=== PATIENT | female | born 1950 | race African-American/Black ===

== ENCOUNTER 2023-06-08 12:07 | Emergency (ER) | payer BC ==
[~2023-06-08] VITALS: Ht 175.3 cm; Wt 64.0 kg
[2023-06-08 12:22] VITALS: BP 175/79; PULSE 91; TEMP 97.9; O2SAT 98
[2023-06-08] MEDS ORDERED: DICL100G31 TP (13:24)
== END 2023-06-08 15:50 | disposition home or self-care (01) ==
LOC: ER 13:03
DX: M25.531 Pain in right wrist (principal); Z88.5 Allergy status to narcotic agent
CPT/HCPCS: 73110; 99283

== ENCOUNTER 2025-02-05 18:30 | Emergency (ER) | payer MEDICARE, MEDICAID ==
[~2025-02-05] VITALS: Ht 160 cm; Wt 60.0 kg
[~2025-02-05 18:30] MED LIST: DICL100G58 TP
[2025-02-05 18:31] VITALS: TEMP 36.7; O2SAT 99
[2025-02-05] MEDS: SODIUM CHLORIDE 0.9% 1,000 ML IV ONE (19:16)
[2025-02-05 19:26] LABS: CALCIUM 9.7 mg/dL (8.7-10.4); CARBON DIOXIDE 29 mEq/L (21-32); CHLORIDE 105 mEq/L (98-107); POTASSIUM 4.3 mEq/L (3.5-5.1); SODIUM 140 mEq/L (136-145)
[2025-02-05 19:31] LABS: CREATININE 0.9 mg/dL (0.6-1.0); GLUCOSE 137 mg/dL (70-105); UREA NITROGEN BLOOD 17 mg/dL (9-23)
[2025-02-05 19:33] LABS: ALANINE AMINOTRANSFERASE < 7 IU/L (10-49); ALBUMIN 4.2 g/dL (3.2-4.8); ASPARTATE AMINOTRANSFERASE 10 IU/L (<34); BILIRUBIN DIRECT 0.2 mg/dL (<=3.0); BILIRUBIN TOTAL 0.7 mg/dL (0.1-1.0)
[2025-02-05 19:36] LABS: TROPONIN I HIGH SENSITIVITY < 4 ng/L (3.0-34)
[2025-02-05 20:34] LABS: BASOPHILS % 0.5 % (0.0-2.0); EOSINOPHILS % 1.3 % (0.0-5.0); HEMATOCRIT. 38.5 % (36.0-48.0); HEMOGLOBIN. 12.9 g/dL (12.0-16.0); LYMPHOCYTES % 8.6 % (20.0-50.0); MEAN CORPUSCULAR HEMOGLOBIN 30.5 pg (28.0-32.0); MEAN CORPUSCULAR HGB CONC 33.5 g/dL (31.0-37.0); MEAN PLATELET VOLUME 9.3 fl (7.4-10.4); MONOCYTES % 5.8 % (2.0-8.0); NEUTROPHILS % 83.8 % (40.0-76.0); PLATELET 225 x1000/uL (130-400); RED BLOOD CELL COUNT 4.23 mill/uL (4.2-5.4); RED CELL DISTRIBUTION WIDTH 14.6 % (11.6-14.6); WHITE BLOOD COUNT 5.4 x1000/uL (4.5-11.0)
[2025-02-05 20:51] LABS: TROPONIN I HIGH SENSITIVITY < 4 ng/L (3.0-34)
[2025-02-05 21:33] VITALS: BP 148/73; PULSE 92; RESP 16; O2SAT 99
== END 2025-02-05 21:56 | disposition left against medical advice (07) ==
LOC: ER 18:30 → EDBEDREQ 20:30 → ENRESERV 21:08 → CANBEDREQ 21:24 → ER 21:56
DX: R55 Syncope and collapse (principal); I21.3 ST elevation (STEMI) myocardial infarction of unspecified site; Z98.2 Presence of cerebrospinal fluid drainage device; Z98.890 Other specified postprocedural states; Z88.5 Allergy status to narcotic agent
CPT/HCPCS: 99285; 96360; 70450; 71045; 80076; 80048; 83880; 85025; 85610; 84484; 36415; 93005; J7030